=== PATIENT | male | born 1945 | race Caucasian/White ===

== ENCOUNTER 2017-07-03 20:25 | Emergency (ER) | payer MEDICARE, BC ==
[2015-08-17 09:42] VITALS: BMI 26.6
[~2017-07-03 20:25] MED LIST: ASPIRIN81 MG PO; COLACE100 MG PO; Chloraseptic Spray [BKC] TOPICAL; GLUCOPHAGE500 MG PO; GLUCOTROL ER2.5 MG PO; HYDROCODONE-APA1 TAB PO; INVOKANA100 MG PO; K-DUR20 MEQ PO; LASIX20 MG PO; MIRALAX17 GM PO; SENOKOT-S TABLE1 TAB PO; TRADJENTA5 MG PO
[2017-07-03 21:52] LABS: BASOPHILS 0 % (0-2); EOSINOPHILS 0.5 % (0-7); HEMATOCRIT 40.9 % (42.0-54.0); IMMATURE GRANULOCYTES 0.6 % (0-5); LYMPHOCYTES 17.9 % (15-50); MCH 27.6 pg (26.0-34.0); MCHC 34.2 g/dL (31.0-37.0); MCV 80.5 fL (80.0-100.0); MEAN PLATELET VOLUME 13.1 fL (7.4-10.4); MONOCYTES 11.9 % (2-11); NEUTROPHILS 69.1 % (40-80); PLATELET COUNT 125 10x3/uL (130-400); RBC 5.08 10x6/uL (4.20-6.10); RDW 14.1 % (11.5-14.5); WBC 14.7 10x3/uL (4.8-10.8)
[2017-07-03 22:09] LABS: ALBUMIN 3.1 g/dL (3.4-5.0); ANION GAP 17.2 mmol/L (8-16); BILIRUBIN - TOTAL 0.74 mg/dL (0.2-1.3); CARBON DIOXIDE 25.5 mmol/L (21.0-32.0); CREATININE - SERUM 1.1 mg/dL (0.6-1.3); POTASSIUM - SERUM 3.7 mmol/L (3.5-5.1); PROTEIN - SERUM 6.2 g/dL (6.4-8.2)
[2017-07-03 22:11] LABS: TROPONIN-I 0.036 ng/mL (0.000-0.060)
== END 2017-07-03 23:07 | disposition home or self-care (01) ==
LOC: D.ER 20:25
PROVIDERS: Emergency Medicine Emergency Medical Services
DX: T78.02XA Anaphylactic reaction due to shellfish (crustaceans), initial encounter (principal); E11.9 Type 2 diabetes mellitus without complications

== ENCOUNTER → 2017-12-13 07:17 | Outpatient (CLI) | payer MEDICARE, BC ==
[2015-08-17 09:42] VITALS: BMI 26.6
== END | disposition home or self-care (01) ==
LOC: D.CT 07:17
DX: R91.1 Solitary pulmonary nodule (principal)

== ENCOUNTER → 2018-03-13 07:05 | Outpatient (CLI) | payer MEDICARE, BC ==
[2015-08-17 09:42] VITALS: BMI 26.6
== END | disposition home or self-care (01) ==
LOC: D.MRI 03-12 17:30
DX: M54.2 Cervicalgia (principal)

== ENCOUNTER 2018-07-17 07:45 | Day surgery (SDC) | payer MEDICARE, BC ==
[2018-07-16 15:16] LABS: HEMATOCRIT 42.2 % (42.0-54.0); HEMOGLOBIN 14.8 g/dL (13.5-17.5); MCH 27.5 pg (26.0-34.0); MCHC 35.1 g/dL (31.0-37.0); MCV 78.3 fL (80.0-100.0); MEAN PLATELET VOLUME 11.2 fL (7.4-10.4); RBC 5.39 10x6/uL (4.20-6.10); RDW 14.5 % (11.5-14.5); WBC 4.6 10x3/uL (4.8-10.8)
[2018-07-16 15:22] LABS: CALC OSMOLALITY 280 mosm/kg (275-300); CALCIUM 9.5 mg/dL (8.5-10.1); CARBON DIOXIDE 27.2 mmol/L (21.0-32.0); CHLORIDE - SERUM 103 mmol/L (98-107); POTASSIUM - SERUM 4.2 mmol/L (3.5-5.1); SODIUM 142 mmol/L (136-145); UREA NITROGEN 10 mg/dL (7-18); eGFR NON AFRICAN AMERICAN 78 mL/min (90-120)
[2018-07-16 15:23] LABS: GLUCOSE 79 mg/dL (74-106)
[~2018-07-17] VITALS: Ht 320 cm; Wt 76.4 kg
--- NOTE | ~2018-07-17 | OP ---
PATIENT NAME: JOEL MONREAL MEDICAL RECORD: [id number] :41 LOCATION:[place] ADMISSION DATE: SURGEON: HAIDER NOLAND MD DATE OF OPERATION: 07/17/2018 PREOPERATIVE DIAGNOSIS: Left C4 radiculopathy. POSTOPERATIVE DIAGNOSES: Left C4 radiculopathy with left C3-4 foraminal stenosis. SURGEON: Haider Noland MD PRIMARY CARE DOCTOR: Dr. Juan PROCEDURE: Left C3-4 foraminotomy and laminotomy. DESCRIPTION OF TECHNIQUE: After induction of general endotracheal anesthesia, the patient was placed in Harris head pins, rolled prone on chest and hip rolls. The posterior neck was prepped and draped in usual sterile fashion. The C3-4 interspace was identified with a spinal needle and fluoroscopic x-ray. A 1:100,000 epinephrine and 1% lidocaine was infiltrated in the subcutaneous tissues. A skin incision was carried out from the spinous process of C3-C4. Then, using a subperiosteal dissection technique, the spinous processes and lamina and the facets on the left C3-4 were exposed under microscopic illumination. Level was confirmed with fluoroscopic x-ray. A microscope and Midas-Mohamud drill was used to perform laminotomy, medial facetectomy, and foraminotomy at C3-4 on the left. Hypertrophied ligamentum flavum was removed with Cloward rongeurs. Following this, further foraminotomy was carried out laterally with a combination of Midas-Mohamud drill and Cloward rongeurs. Following this, the left C4 nerve root was completely decompressed. Meticulous hemostasis was maintained throughout the wound. Wound was irrigated with copious amounts of Ancef irrigant solution. The retractor was removed. The fascia was closed with 2-0 Vicryl suture. The subdermal layer was closed with 3-0 Vicryl suture. The skin was reapproximated with aydin. A sterile dressing was applied to the wound. The patient was awakened in good condition and taken to recovery. All counts were reported as correct. Estimated blood loss was minimal. TRANSINT:[id number] Voice Confirmation ID: [id number] DOCUMENT ID: [id number] HAIDER NOLAND MD at 1829 CC: [id number] DICTATION DATE: 08/01/18 4714 [employer] [employer] EXAMINER: 08/01/18 1250 [facility] [place] 07/17/18 [place] [id number] [place] [place] [address]
--- NOTE | ~2018-07-17 | DS ---
PATIENT:JOEL HASTINGS :41 MEDICAL RECORD: [id number] DISCHARGE SUMMARY ADMISSION DATE: 07/17/18 DISCHARGE DATE: 07/17/18 DATE OF ADMISSION: 07/17/2018 DATE OF DISCHARGE: 07/17/2018 ATTENDING PHYSICIAN: Haider Cunha MD HOSPITAL COURSE: Mr. Hastings was operated on as an outpatient for a posterior cervical foraminotomy at C3-4 on the left. He tolerated the procedure well and was ready for discharge on the same day as admission: He is discharged home with a return to clinic to Dr. Cunha in 1 week for removal of aydin and wound check. DISCHARGE MEDICATIONS: Same as admission medications. DIET: Regular. TRANSINT:[id number] Voice Confirmation ID: [id number] DOCUMENT ID: [id number] HAIDER CUNHA MD CC: [id number] DICTATION DATE: 08/16/181106 PLANER SETTER: 08/16/18 2258 [facility] 07/17/18 [place] [id number]
[~2018-07-17 07:45] MED LIST changes: +CELEXA20 MG PO; +GLIMEPIRIDE2 MG PO; +GLUCOPHAGE1000 MG PO; -GLUCOPHAGE500 MG PO; +OMEPRAZOLE20 M1 PO; +PEPCID AC20 MG PO; +SYNTHROID75 MCG PO; +TRULICITY0.75 MG/0. SC
[2018-07-17 09:37] VITALS: BP 113/56
[2018-07-17 13:52] VITALS: BP 105/61
[2018-07-17 13:54] VITALS: BP 105/61; Ht 320 cm; Wt 76.4 kg
[2018-07-17 14:15] VITALS: BP 116/72
[2018-07-17 14:30] VITALS: BP 108/71
[2018-07-17 14:45] VITALS: BP 130/76
[2018-07-17] MEDS ORDERED: NORCO 10-325 TA1 TAB PO (15:43)
== END 2018-07-17 16:50 | disposition home or self-care (01) ==
LOC: OBSVTIME → D.MS 07:45 → D.SDCHOLD 07:45 → D.OPS 07:45 → OBSVTIME 07:45 → D.SDCHOLD 07:45 → EDSTATUS 10:15 → D.SDCHOLD 10:15 → D.MS 13:05 → D.OPS 16:50
PROVIDERS: Anesthesiology
DX: M54.12 Radiculopathy, cervical region (principal); Z01.812 Encounter for preprocedural laboratory examination